=== PATIENT | female | born 1970 | race Caucasian/White ===

== ENCOUNTER 2019-01-07 19:30 | Emergency (ER) | payer SELFPAY ==
[2019-01-07 19:30] VITALS: BP 176/96; PULSE 82; RESP 22; TEMP 36.5; O2SAT 99; BMI 33.4
[2019-01-07 19:41] VITALS: BP 176/96; PULSE 82; RESP 14; O2SAT 98
--- NOTE | 2019-01-07 19:44 | RAD_ITS ---
STUDY: X-RAY CHEST REASON FOR EXAM: Female, 48 years old. Chest pain TECHNIQUE: Single frontal view of the chest. COMPARISON: May 30, 2014 FINDINGS: The lungs are clear and expanded. There is no demonstrated pleural abnormality. Normal size heart. Normal mediastinum and manny. Normal visualized pulmonary arteries. Normal visualized aortic arch and descending thoracic aorta. Normal visualized thoracic spine. Normal visualized ribs, clavicles, and shoulders. There is no demonstrated abnormality of the visualized soft tissue structures of the upper abdomen. RAD/Chest 1 View (Portable) IMPRESSION: Normal x-ray examination of the chest. Electronically Signed: Jarvis Badillo MD at 20:17 EDT , Service support ,
--- NOTE | 2019-01-07 19:44 | EKG12_ITS ---
Test Reason : CP Blood Pressure : / mmHG Vent. Rate : 087 BPM Atrial Rate : 087 BPM P-R Int : 140 ms QRS Dur : 082 ms QT Int : 374 ms P-R-T Axes : 036 022 024 degrees QTc Int : 450 ms Normal sinus rhythm Normal ECG Confirmed by SHIVAM CAMARILLO, MILLICENT ([id number]), film editor supervisor SYLVAIN XAVIER ([id number]) on 01/11/2019 11:31:47 AM Referred By: Confirmed By:MILLICENT LANGLEY MD
[2019-01-07 19:54] LABS: Absolute Neutrophil Count 6.1 X10^3/uL (2.0-7.7); Basophil# 0.04 X10^3/uL; Basophil% 0.4 % (0-1); Eosinophil# 0.11 X10^3/uL; Eosinophils% 1.1 % (0-5); Hematocrit 41.9 % (37-47); Hemoglobin 14.5 g/dl (12.0-15.0); Lymphocyte % 31.4 % (19-41); Mean Corp Hgb Conc 34.6 g/gl (32-36); Mean Corpuscular Hgb 30.9 pg (27.0-32.0); Mean Corpuscular Volume 89.3 fL (81-99); Mean Platelet Vol. 9.2 fl (6.2-12.0); Monocyte# 0.69 X10^3/uL; Monocyte% 6.8 % (0-10); Neutrophil # 6.14 X10^3/uL (2.7-7.7); Neutrophil % 60.2 % (47-70); Platelet Count 274 K/mm3 (150-450); RBC Distribution Width CV 12.9 % (11.6-14.6); RBC Distribution Width SD 41.1 fl (35.1-43.9); Red Blood Count 4.69 M/mm3 (4.2-5.4); White Blood Count 10.2 K/mm3 (4.4-11.0)
[2019-01-07 19:55] LABS: POSITIVE COUNT NO; POSITIVE DIFFERENTIAL NO; POSITIVE MORPHOLOGY NO
[2019-01-07 20:10] LABS: Anion Gap 8 (5-15); BUN 11 mg/dL (7-18); BUN/Creat Ratio 14.5 RATIO (10-20); Calcium,Total 8.7 mg/dL (8.5-10.1); Chloride 108 mmol/L (98-107); Creatinine, Serum 0.76 mg/dL (0.55-1.02); EST Glomerular Filtration Rate 86 mL/min (>60); Est Glom Filt Rate - Afr Amer 104 mL/min (>60); Estimated Creatinine Clearance 81.46 ml/min; Glucose 85 mg/dL (74-106); Potassium 3.9 mmol/L (3.5-5.1); Sodium Level 140 mmol/L (136-145)
--- NOTE | 2019-01-07 20:14 | CT_ITS ---
STUDY: CTA CHEST REASON FOR EXAM: Female, 48 years old. Chest pain RADIATION DOSAGE (If Supplied By Facility): CTDIvol = ( 10.83 ) mGy, DLP = ( 412.05 ) mGycm TECHNIQUE: The examination was performed with the intravenous administration of 100ml IV Isovue 370. Post-processing of the angiographic images was performed, with multiplanar reformation and 3D reconstruction. Individualized dose optimization techniques were used for this CT. COMPARISON: Chest x-ray from today FINDINGS: Normal enhancement of the main pulmonary artery and right and left pulmonary arteries. Normal enhancement of the bilateral peripheral pulmonary arteries. There is no demonstrated pulmonary embolism. Normal thoracic aorta and visualized great vessels. There is no demonstrated aortic dissection. Normal heart and pericardium. Calcific coronary artery disease. Normal mediastinum. Normal hilar regions. Normal visualized trachea and bronchi. The lungs are well expanded. Normal pulmonary parenchyma. Normal pleura. Normal chest wall structures. Normal osseous structures. Normal visualized upper abdomen. CT/CTA Chest W/WO Contrast IMPRESSION: Coronary artery disease. No acute disease. Electronically Signed: Jarvis Badillo MD at 21:05 EDT , Service support ,
--- NOTE | 2019-01-07 20:18 | ED.DCSUM_ITS ---
- ER Visit Summary Date of Service: 01/07/19 Chief Complaint: [] Right upper shoulder pain radiating to the left shoulder History of Present Illness: The patient is a 48 F [] Cates she has no past history woke feeling fine was at work around 6 PM which been having a pain to her right upper shoulder that radiated from the right upper shoulder region across her right clavicle into the left upper shoulder region, she indicates it is difficult and painful to move her right upper extremity, she indicates she has a very nonspecific chest discomfort associate with all this, she has no history of trauma no history of [place] PE DVT-no hypertension, she indicates that her left calf feels numb in a nonspecific fashion, 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 and did not injure herself anyway, Her review of systems are negative She points directly to the anterior right shoulder as focus of her pain any range of movement to the shoulder causes pain Physical Examination: [] vsigns are within normal range see those reports General, no distress resting comfortably HEENT is generally unremarkable The neck is supple no adenopathy Cardiovascular, regular rate and rhythm Lungs, clear bilateral Abdomen, soft nontender Extremities, no clubbing cyanosis or edema, she has pain over the anterior right shoulder she can barely move the shoulder any type of forward elevation or flexion or movement of the shoulder causes pain her hand function is strong bilaterally she has strong radial pulses, she can move at the wrists the elbows she, when she moves the left shoulder active forward elevation complains of pain in the right shoulder, her C-spine T-spine lumbar spine are nontender, she does complain of a vague pain to the right paracervical musculature, she has full range of motion of her lower extremities that numbness weakness paresthesias normal pulses sensation capillary refill to all extremities her left calf is unremarkable to exam Neurologic, awake alert answering questions appropriately moving all 4 extremities neurologic exam is entirely unremarkable NIH 0 Test Results: [] Emergency Department Course and Treatment: [] Sinus rhythm nothing acute rate 80, her history and physical exam are very nonspecific at this time she will receive screening labs IV fluids pain management x-rays CTA of the chest Screening labs are all unremarkable chest x-ray unremarkable, CTA chest u nremarkable for anything life-threatening or acute, her shoulder x-ray shows signs of DJD at the right AC joint level see that report on reevaluation she is resting feeling better I discussed her test results with her I explained her that her symptoms do not appear at this time be of any signs of acute cardiovascular disorder we discussed inpatient versus outpatient management for ongoing therapy she did not wish to be admitted she declined admission at this time I explained to her given the findings on the x-ray given the fact that her pain is clearly reproducible when she moves her right shoulder she will be fitted with a sling Naprosyn for pain she will follow-up with her outpatient providers tomorrow return for change in symptoms Treatment Plan: [] Disposition: [] Home stable declined admission Impression: [] Right shoulder pain radiating across chest This note was generated with [employer] dictation software. It may contain incorrect words, spelling, and punctuation that were not noted in review of the chart prior to signing ED Disposition - Plan for ED Patient: Referrals: Care Physician,No Primary [Primary Care Provider] -
[2019-01-07] MEDS: morphine 8 MG/ML Syringe IV (20:31)
[2019-01-07] MEDS: Ondansetron 4 MG/2 ML Vial IV (20:31)
--- NOTE | 2019-01-07 20:45 | RAD_ITS ---
STUDY: X-RAY - RIGHT SHOULDER REASON FOR EXAM: Female, 48 years old. Shoulder pain TECHNIQUE: 4 view(s) of the shoulder. COMPARISON: None. FINDINGS: Normal glenohumeral articulation. Normal acromioclavicular joint. Normal acromion. Periarticular calcification or old avulsion fracture acromioclavicular joint. Normal humeral head and visualized proximal humerus. The soft tissue structures are unremarkable. Normal visualized pulmonary apex. RAD/Shoulder min 2 Views IMPRESSION: Degenerative changes AC joint Electronically Signed: Jarvis Badillo MD at 21:08 EDT , Service support ,
[2019-01-07 22:35] VITALS: BP 119/72
--- NOTE | 2019-01-07 23:16 | ED.DEP ---
ED Disposition - Plan for ED Patient: Instructions: ED Chest Pain Atypical Unkn Cause Prescriptions: Naproxen [Naprosyn] 500 mg PO BID PRN #20 tab Referrals: Care Physician,No Primary [Primary Care Provider] - Silas Thurman MD [STAFF PHYSICIAN] -
--- NOTE | 2019-01-07 23:18 | ED.DEP ---
ED Disposition - Plan for ED Patient: Instructions: ED Chest Pain Atypical Unkn Cause, ED Sprain Shoulder, ED Sling Prescriptions: Naproxen [Naprosyn] 500 mg PO BID PRN #20 tab Referrals: Silas Thurman MD [STAFF PHYSICIAN] - Care Physician,No Primary [Primary Care Provider] -
--- NOTE | 2019-01-07 23:21 | ED.RN ---
PT VERY UPSET THAT IT HAS TAKEN OVER 30 MIN BETWEEN PHYSICIAN REEVALUATION TIME AND DISCHARGE TIME. PT ALSO UPSET THAT SHE DOESN'T UNDERSTAND WHY SHE STILL HAS PAIN. EMOTIONAL SUPPORT GIVEN. IV REMOVED WITH ANGIOCATH INTACT. PENDING DC INSTRUCTIONS.
== END 2019-01-07 23:29 | disposition home or self-care (01) ==
LOC: ED 20:18
PROVIDERS: Emergency Provider Emergency Medicine
DX: M25.511 Pain in right shoulder (principal); R07.89 Other chest pain
CPT/HCPCS: 71045; 71275; 73030; 80048; 84484; 85025; 93005; 96361; 96374; 96375; 99285; J7030; J7040; Q9967; A4216; J2405

== ENCOUNTER 2025-02-17 17:03 | Emergency (ER) | payer MEDICAID, SELFPAY ==
[2025-02-17 17:04] VITALS: BP 139/89; PULSE 87; RESP 16; TEMP 37.1; O2SAT 98; BMI 26.8
--- NOTE | 2025-02-17 17:17 | EDS_ITS ---
HPI <JACINTA Coronado - Last Filed: 02/17/25 17:41> History of Present Illness Chief Complaint: Upper Extremity Injury Narrative Narrative: 54-year-old female presents with pain in both hands. 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 When she woke up her left hand was swollen and painful over the dorsal aspect. It went away after couple days but then started to hurt become swollen again a few days ago. She started wearing a wrist brace her friend gave her. She took ibuprofen twice. Over the last 2 days she developed right thumb pain and swelling. No injury. No weakness or numbness or tingling. No fever or chills. PFSH <JACINTA Coronado - Last Filed: 02/17/25 17:41> [facility], [facility] Home Medications ?Medication ?Instructions ?Recorded ?Last Taken ?Type biotin 1 mg tablet 1 mg PO DAILY 01/07/19 Unkno wn History naproxen 500 mg tablet 500 mg PO BID PRN #20 tabs 0 01/07/19 Unknown Rx ibuprofen 600 mg tablet 600 mg PO Q6H PRN PRN pain 7 days 02/17/25 Unknown Rx #28 TABLETS Allergy/AdvReac Type Severity Reaction Status Date / Time Penicillins (PCN) Allergy Hives Verified 02/17/25 17:03 Surgical History (Updated 02/17/25 @ 17:09 by Blossom Gonzalez) History of appendectomy History of cholecystectomy Social History Smoking Status: Current every day smoker tobacco type: cigarettes ROS <JACINTA Coronado - Last Filed: 02/17/25 17:41> ROS ED ROS Narrative Constitutional: Negative for fever, chills, malaise. CVS: Negative for chest pain. Neuro: Negative for motor/sensory dysfunction. Skin: Negative for rash, abscess, or wound. EXAM <JACINTA Coronado - Last Filed: 02/17/25 17:41> Physical Exam Narrative Exam Narrative: CONST: Patient sitting in no acute distress. EYES: Normal inspection. NECK: Normal inspection. RESP: No respiratory distress, CTAB. CVS: Regular rate and rhythm, no murmur, no gallop. SKIN: Color normal, no rash, warm, dry, intact. EXTREMITIES: Right upper extremity: Right thumb edema with no overlying erythema, warmth, or skin changes. The rest of the upper extremity appears normal. Tender over the thumb. No tenderness over the rest of the hand, wrist, forearm elbow or shoulder. Thumb range of motion slightly limited by swelling and pain. Normal motor and sensory function in median radial and ulnar distributions. 2+ radial pulse and brisk cap refill. Positive Rj's test. Left upper extremity: Minimal dorsal wrist swelling. Tender over the thumb. No scaphoid or wrist tenderness. Full range of motion, normal motor or sensory function median radial ulnar distributions, 2+ radial pulse brisk cap refill. Positive Rj's test. NEURO: Alert and answering questions appropriately. PSYCH: Normal affect. 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 There was no trauma. She has swelling over the right thumb with associated pain and mild left wrist swelling with tenderness over the thumb. Positive Rj test bilaterally. She is neurovascularly intact. There is no signs of infection or septic joint. Since there is no trauma there is no indication for x-rays. She most likely has de quervains tenosynovitis. She was provided bilateral thumb spica splints, prescribed ibuprofen, advised to rest and ice and follow-up with orthopedics if needed. She was discharged in stable condition. <Dr. 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 There was no trauma. She has swelling over the right thumb with associated pain and mild left wrist swelling with tenderness over the thumb. Positive Rj test bilaterally. She is neurovascularly intact. There is no signs of infection or septic joint. Since there is no trauma there is no indication for x-rays. She most likely has de quervains tenosynovitis. She was provided bilateral thumb spica splints, prescribed ibuprofen, advised to rest and ice and follow-up with orthopedics if needed. She was discharged in stable condition. Attending note: I have personally performed a face to face assessment of the patient and have reviewed the LIZET note. I personally made/approved the management plan and take responsibility for the patient management. I performed a substantive portion of the visit including all aspects of the following. My allred findings include: Bilateral pain in thumbs initially on left right. 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 Initial swelling to the left wrist 2 weeks ago improved with the splint. No trauma. Exam bilateral positive Rj's test. No redness. Treated with NSAIDs bilateral thumb spica splints. Outpatient follow- up. Discharge Plan Triage Chief Complaint: Upper Extremity Injury ED Midlevel Provider: Puja Silverio ED Provider: Javier Jama Dx/Rx/DC Orders Clinical Impression: De Quervain's disease (tenosynovitis), Bilateral thumb pain Instructions: De Quervain Tenosynovitis Prescriptions: New ibuprofen 600 mg tablet 600 mg PO Q6H PRN PRN (Reason: pain) 7 Days Qty: 28 0RF No Action biotin 1 MG tablet 1 mg PO DAILY naproxen 500 MG tablet 500 mg PO BID PRN Qty: 20 0RF Stand Alone Forms: ED Work / School Excuse Primary Care Provider: Care Physician,No Primary Referrals: Osiel Barroso MD [Med Staff - Active Staff] - Care Physician,No Primary [Primary Care Provider] - Activity Restrictions/Additional Instructions: Wear the wrist splints to keep it immobilized by it is healing. Take ibuprofen every 6 hours as needed. If you need additional pain relief you can also take [id number] Tylenol every 6 hours with it. Ice the area. Follow-up with orthopedics. Print Language: Turkmen Disposition Disposition: Home, Self Care Discharge Date/Time: 02/17/25 18:17
[2025-02-17] MEDS: Ketorolac 15 MG/ML Vial IM (17:23)
[2025-02-17 18:16] VITALS: BP 125/62; PULSE 82; RESP 16; TEMP 36.6; O2SAT 98
== END 2025-02-17 18:17 | disposition home or self-care (01) ==
PROVIDERS: Emergency Provider Emergency Medicine; Visit Provider Emergency Medicine
DX: M65.4 Radial styloid tenosynovitis [de Quervain] (principal); F17.210 Nicotine dependence, cigarettes, uncomplicated
CPT/HCPCS: 96372; 99283